=== PATIENT | female | born 1995 | race Caucasian/White ===

== ENCOUNTER 2017-01-18 15:38 | Emergency (ER) | payer MEDICAID, OTHER ==
[2017-01-18 16:08] VITALS: BP 133/91
--- NOTE | 2017-01-18 16:42 | ERNOTE ---
Upper Extremity HPI - Narrative Date of Service: 01/18/17 - General Extremities Pain Location: wrist: right Time Seen by Provider: 01/18/17 16:18 Source: patient Exam Limitations: no limitations - Immun/Allergies/Home Medications Immunizations: IMMUNIZATION HX Immunizations Up to Date Yes History of Influenza Vaccine No Hx Pneumococcal Vaccination No Allergies/Adverse Reactions: Allergies Allergy/AdvReac Type Severity Reaction Status Date / Time No Known Allergies Allergy Unverified 01/18/17 16:08 Home Medications: HOME MEDICATIONS Naproxen [Naprosyn] 500 mg PO BID PRN #60 tab 01/18/17 [Last Taken Unknown] - History of Present Illness Narrative: Pt. comes in with c/o R wrist pain from hitting it on a table three days ago at work. Pt. denies any numbness, fever, tingling, SOB or CP. Pt. denies any prehospital treatment, alleviating factors, or aggravating factors. Review of Systems - Review of Systems Constitutional: Present: no symptoms reported. Absent: recent illness, fever, chills, weakness, fatigue, malaise EYE: Present: no symptoms reported ENT: Present: pulling on ears Respiratory: Present: no symptoms reported. Absent: shortness of breath, cough , wheezing Cardiology: Present: no symptoms reported. Absent: chest pain, palpitations, edema Gastrointestinal/Abdominal: Present: no symptoms reported. Absent: nausea, vomiting, diarrhea, abdominal pain Genitourinary: Present: no symptoms reported Musculoskeletal: Present: joint pain - R wrist. Absent: back pain Skin: Present: no symptoms reported Neurological: Present: no symptoms reported. Absent: anxiety, headache, dizziness/light-headedness, numbness, tingling Endocrine: Present: no symptoms reported Hematologic/Lymphatic: Present: no symptoms reported Psych: Present: no symptoms reported All Other Systems: All systems neg except as marked - Patient's Past Medical History Patient History - Medical: No pertinent hx Patient History - Cancer: No Hx of Cancer Patient History - Surgical Procedures: No surgical history Patient History - Other: None LMP (females 10-50): 3 weeks - Social History Living Situations: home Psych History: No pertinent hx Have you smoked in the past 12 months: No Do you dip or chew tobacco: No - Immunizations Immunizations Up to Date: Yes Hx Pneumococcal Vaccination: No History of Influenza Vaccine: No Physical Exam - Physical Exam General Appearance: Present: wd/wn, alert, no apparent distress Eye Exam: Normal inspection: bilateral, PERRL: bilateral Ears, Nose, Throat: Present: normal ENT inspection, normal pharynx Neck: Present: normal inspection, nontender. Absent: lymphadenopathy (R), lymphadenopathy (L) Respiratory: Present: no respiratory distress, normal breath sounds, no accessory muscle use, chest nontender, lungs clear Cardiovascular/Chest: Present: regular rate, rhythm, no murmur, normal peripheral pulses Gastrointestinal/Abdominal: Present: normal bowel sounds, nontender, nondistended, soft, no organomegaly Back Exam: Present: normal inspection, normal range of motion, no CVA tenderness , no vertebral tenderness Extremity Exam: Present: normal inspection, normal range of motion, no edema, other - radial nerve pain with rotation of wrist Neurological Exam: Present: alert, oriented, normal mood/affect, no motor/ sensory deficits Skin Exam: Present: normal color, warm/dry. Absent: pallor, skin rash ED Progress - Vital Signs Patient's Vital Signs:: I have reviewed the patient's vital signs. Vital Signs: Vital Signs 01/18/17 16:04 Temperature 36.4 C L Pulse Rate 96 Respiratory 16 Rate Blood Pressure 133/91 O2 Sat by Pulse 100 Oximetry - X-Ray X-Ray #1 X-Ray: wrist Interpretation: Reviewed by me X-ray Comments: no fracture - Progress/Reassessment Chief Complaint: Lower Extremity Pain/ Injury Departure Clinical Impression: Radial nerve injury Qualifiers: Encounter type: initial encounter Location of peripheral nerve injury: wrist Laterality: right Qualified Code(s): S64.21XA - Injury of radial nerve at wrist and hand level of right arm, initial encounter - Departure Disposition: Home self-care Condition: Good Instructions: Wrist Pain, [id number] Additional Instructions: Please follow up with occupational health in 2-3 days. No lifting or use of R hand for one week. Prescriptions: Naproxen [Naprosyn] 500 mg PO BID PRN #60 tab PRN Reason: Pain
== END 2017-01-18 17:10 | disposition home or self-care (01) ==
LOC: ER 15:38
DX: S64.21XA Injury of radial nerve at wrist and hand level of right arm, initial encounter (principal); W22.8XXA Striking against or struck by other objects, initial encounter